=== PATIENT | male | born 1980 | race Two or more races ===

== ENCOUNTER 2017-09-11 11:28 | Outpatient (CLI) | payer OTHER | END 2017-09-11 12:40 | disposition home or self-care (01) | LOC: TOM 11:28 | DX: N28.1 Cyst of kidney, acquired (principal) ==

== ENCOUNTER 2017-09-26 14:05 | Outpatient (CLI) | payer OTHER | END 2017-09-26 15:00 | disposition home or self-care (01) | LOC: NUCLEAR 14:05 | DX: N28.1 Cyst of kidney, acquired (principal) | CPT/HCPCS: 78708; A9539; J1940 ==

== ENCOUNTER 2018-08-17 21:44 | Emergency (ER) | payer OTHER ==
[~2018-08-17] VITALS: Ht 172.7 cm; Wt 83.9 kg
[2018-08-18] MEDS ORDERED: ULTRACET PO (01:22)
== END 2018-08-18 01:51 | disposition home or self-care (01) ==
LOC: ER 21:44
DX: N13.5 Crossing vessel and stricture of ureter without hydronephrosis (principal); R10.32 Left lower quadrant pain

== ENCOUNTER → 2018-08-20 | Outpatient (CLI) | payer OTHER ==
[~2018-08-20] MED LIST: ULTRACET PO
== END | disposition home or self-care (01) ==
LOC: SONOGRAMA 10:14 → MAMO-SONO 10:45
DX: N13.1 Hydronephrosis with ureteral stricture, not elsewhere classified (principal)

== ENCOUNTER 2018-08-31 07:13 | Outpatient (CLI) | payer OTHER | END 2018-08-31 07:58 | disposition home or self-care (01) | LOC: LAB 07:13 | DX: N13.1 Hydronephrosis with ureteral stricture, not elsewhere classified (principal) ==

== ENCOUNTER 2018-09-08 07:28 | Inpatient (IN) | payer OTHER ==
[~2018-09-08] VITALS: Ht 172.7 cm; Wt 81.6 kg
[2018-09-12] MEDS ORDERED: PANTOPRAZOLE SO40 MG PO (09:36)
[2018-09-12] MEDS ORDERED: INTEGRA CAPSUL1 EACH PO (09:37)
== END 2018-09-12 09:57 | disposition home or self-care (01) | DRG 384 ==
LOC: ER 07:28 → MEDJ 19:35
PROVIDERS: ADMIT Internal Medicine
PROC: 0DB78ZX Excision of Stomach, Pylorus, Via Natural or Artificial Opening Endoscopic, Diagnostic (ICD-10-PCS; principal; 2018-09-11)
DX: K25.3 Acute gastric ulcer without hemorrhage or perforation (principal); D62 Acute posthemorrhagic anemia; N13.5 Crossing vessel and stricture of ureter without hydronephrosis; K92.0 Hematemesis; R10.32 Left lower quadrant pain; D72.828 Other elevated white blood cell count

== ENCOUNTER 2018-10-12 07:56 | Outpatient (CLI) | payer OTHER ==
[~2018-10-12 07:56] MED LIST changes: +INTEGRA CAPSUL1 EACH PO; +PANTOPRAZOLE SO40 MG PO
== END 2018-10-12 08:31 | disposition home or self-care (01) ==
LOC: RAD 07:56
DX: N18.9 Chronic kidney disease, unspecified (principal); N20.0 Calculus of kidney

== ENCOUNTER 2019-08-11 11:46 | Emergency (ER) | payer OTHER ==
[~2019-08-11] VITALS: Ht 172.7 cm; Wt 83.9 kg
[2019-08-11] MEDS ORDERED: AIRBORNE EFFER1 EACH PO (17:11)
[2019-08-11] MEDS ORDERED: ZITHROMAX500 MG PO (17:11)
== END 2019-08-11 17:24 | disposition home or self-care (01) ==
LOC: ER 11:46
DX: B34.9 Viral infection, unspecified (principal); B96.0 Mycoplasma pneumoniae [M. pneumoniae] as the cause of diseases classified elsewhere; G44.209 Tension-type headache, unspecified, not intractable; N39.0 Urinary tract infection, site not specified; B96.1 Klebsiella pneumoniae [K. pneumoniae] as the cause of diseases classified elsewhere; R31.29 Other microscopic hematuria; Z03.818 Encounter for observation for suspected exposure to other biological agents ruled out

== ENCOUNTER → 2019-08-29 06:26 | Outpatient (CLI) | payer OTHER ==
[~2019-08-29 06:26] MED LIST changes: +AIRBORNE EFFER1 EACH PO; +ZITHROMAX500 MG PO
== END | disposition home or self-care (01) ==
LOC: LAB 06:26
PROVIDERS: ATTEND Urology
DX: N30.00 Acute cystitis without hematuria (principal)

== ENCOUNTER 2020-01-20 15:25 | Emergency (ER) | payer OTHER ==
[~2020-01-20] VITALS: Ht 172.7 cm; Wt 83.9 kg
[2020-01-20] MEDS ORDERED: IVERMECTIN3 MG PO (19:49)
[2020-01-20] MEDS ORDERED: MEDROLPACK PO (19:49)
[2020-01-20] MEDS ORDERED: DOLOGEN CAPLET1 EACH PO (19:49)
[2020-01-20] MEDS ORDERED: TUSNEL LIQUID178 ML PO (19:49)
[2020-01-20] MEDS ORDERED: ZITHROMAX500 MG PO (19:49)
== END 2020-01-20 20:02 | disposition home or self-care (01) ==
LOC: ER 15:25
DX: U07.1 COVID-19 (principal); J12.89 Other viral pneumonia; B96.0 Mycoplasma pneumoniae [M. pneumoniae] as the cause of diseases classified elsewhere; B34.9 Viral infection, unspecified

== ENCOUNTER 2020-10-02 10:54 | Outpatient (CLI) | payer OTHER ==
[~2020-10-02 10:54] MED LIST changes: +DOLOGEN CAPLET1 EACH PO; +IVERMECTIN3 MG PO; +MEDROLPACK PO; +TUSNEL LIQUID178 ML PO
== END 2020-10-02 14:46 | disposition home or self-care (01) ==
LOC: TOM 10:54
PROVIDERS: ATTEND Urology
DX: N20.0 Calculus of kidney (principal); N28.89 Other specified disorders of kidney and ureter

== ENCOUNTER → 2020-11-17 09:50 | Outpatient (CLI) | payer OTHER | END | disposition home or self-care (01) | LOC: LAB 09:50 | PROVIDERS: ATTEND Urology | DX: N20.0 Calculus of kidney (principal) ==

== ENCOUNTER → 2020-11-19 10:13 | Outpatient (CLI) | payer OTHER | END | disposition home or self-care (01) | LOC: LAB 10:13 | PROVIDERS: ATTEND Urology | DX: N20.0 Calculus of kidney (principal) ==

== ENCOUNTER → 2020-11-21 | Outpatient (CLI) | payer OTHER | END | disposition home or self-care (01) | LOC: LAB 12:43 | PROVIDERS: ATTEND Urology | DX: N20.0 Calculus of kidney (principal) ==

== ENCOUNTER 2020-12-14 10:40 | Outpatient (CLI) | payer OTHER | END 2020-12-14 15:00 | disposition home or self-care (01) | LOC: LAB 10:40 | PROVIDERS: ATTEND Urology | DX: N20.0 Calculus of kidney (principal) ==

== ENCOUNTER 2021-10-21 10:03 | Outpatient (CLI) | payer OTHER | END 2021-10-21 10:58 | disposition home or self-care (01) | LOC: LAB 10:03 | DX: D50.0 Iron deficiency anemia secondary to blood loss (chronic) (principal); E03.9 Hypothyroidism, unspecified; D64.9 Anemia, unspecified; N39.0 Urinary tract infection, site not specified; D29.1 Benign neoplasm of prostate ==

== ENCOUNTER 2021-10-21 10:40 | Outpatient (CLI) | payer OTHER | END 2021-10-21 10:51 | disposition home or self-care (01) | LOC: SONOGRAMA 10:40 | PROVIDERS: ATTEND Obstetrics & Gynecology | DX: N23 Unspecified renal colic (principal) ==

== ENCOUNTER → 2022-02-26 08:58 | Outpatient (CLI) | payer OTHER | END | disposition home or self-care (01) | LOC: LAB 08:58 | PROVIDERS: ATTEND Urology | DX: R97.21 Rising PSA following treatment for malignant neoplasm of prostate (principal) ==

== ENCOUNTER 2022-03-01 09:20 | Outpatient (CLI) | payer OTHER | END 2022-03-01 09:29 | disposition home or self-care (01) | LOC: RAD 09:20 | PROVIDERS: ATTEND Urology | DX: N20.0 Calculus of kidney (principal) ==

== ENCOUNTER 2022-04-05 13:15 | Emergency (ER) | payer OTHER ==
[~2022-04-05] VITALS: Ht 172.7 cm; Wt 88.9 kg
[2022-04-05] MEDS ORDERED: ZYRTEC10 M3 PO (19:09)
[2022-04-05] MEDS ORDERED: FLONASE ALLERG9.9 ML NASAL (19:09)
== END 2022-04-05 19:12 | disposition home or self-care (01) ==
LOC: ER 13:15
DX: R51.9 Headache, unspecified (principal); N18.9 Chronic kidney disease, unspecified

== ENCOUNTER 2022-10-15 10:14 | Emergency (ER) | payer OTHER ==
[~2022-10-15] VITALS: Ht 172.7 cm; Wt 90.7 kg
[~2022-10-15 10:14] MED LIST changes: +FLONASE ALLERG9.9 ML NASAL; +ZYRTEC10 M3 PO
== END 2022-10-15 17:27 | disposition home or self-care (01) ==
LOC: ER 10:14
PROVIDERS: General Practice
DX: R50.9 Fever, unspecified (principal); Z87.442 Personal history of urinary calculi; N41.9 Inflammatory disease of prostate, unspecified; Z90.5 Acquired absence of kidney; Z20.822 Contact with and (suspected) exposure to COVID-19

== ENCOUNTER 2024-11-07 07:04 | Outpatient (CLI) | payer OTHER ==
[2024-11-07 08:19] LABS: BASO % 0.5 % (0.1-1.2); EOS # 0.11 (0.04-0.54); EOS % 1.7 % (0.7-7.0); LYMPH # 3.05 (1.18-3.74); LYMPH % 47.7 % (19.3-53.1); MEAN PLATELET VOLUME 10.20 fl (9.4-12.4); MONO # 0.64 (0.24-0.82); MONO % 10.0 % (4.7-12.5); NEUT # 2.56 (1.56-6.13); NEUT % 39.9 % (34.0-71.1); RED CELL DISTRIBUTION WIDTH 12.9 % (11.6-14.4)
[2024-11-07 08:24] LABS: URINE APPEARANCE Clear; URINE BILIRRUBIN Negative (NEGATIVE); URINE BLOOD Negative; URINE COLOR Yellow; URINE GLUCOSE Negative (NEGATIVE); URINE KETONE Negative (NEGATIVE); URINE LEUKOCYTE Negative; URINE NITRATE Negative; URINE PROTEIN Negative (NEGATIVE); URINE UROBILINOGEN 0.2 E.U./dl
[2024-11-07 08:28] LABS: URINE RBC 2.0 uL (0.0-20.8); URINE WBC 2.7 uL (0.0-23.2)
[2024-11-07 08:29] LABS: URINE BACTERIA 1.1 uL (0.0-1933); URINE CAST 0.00 uL (0.0-1.40); URINE EPITHELIAL CELLS 0.9 uL (0.0-38.8)
[2024-11-07 09:15] LABS: ALT/SGPT 48.0 U/L (12-78); AST/SGOT 30.0 U/L (15-37); BILIRUBIN TOTAL 0.33 mg/dL (0.3-1.2); BUN CREA RATIO 15.0 (7.0-25.0); CHOL HDL RATIO 3.9 (0-5.0); CREATININE SERUM 1.14 mg/dL (0.70-1.30); GFR 69.46; GLOBULINA 3.6 G/DL (2.4-3.5); GLUCOSE FASTING 90.0 mg/dL (65-100); HDL 50.0 mg/dl (40-60); LDL 123.0 mg/dl (0-130); OSMOLALITY SERUM 282.0 MOSM/KG (275-295); PROSTATIC SPECIFIC ANTIGEN 1.76 NG/ML (0.010-4.00); TSH 1.21 uIU/mL (0.358-3.74); VLDL 20.0 (0-39)
== END 2024-11-07 07:22 | disposition home or self-care (01) ==
LOC: LAB 07:04
PROVIDERS: ATTEND Obstetrics & Gynecology
DX: R73.9 Hyperglycemia, unspecified (principal); R42 Dizziness and giddiness; R30.0 Dysuria; Z12.11 Encounter for screening for malignant neoplasm of colon; Z12.5 Encounter for screening for malignant neoplasm of prostate; E78.2 Mixed hyperlipidemia

== ENCOUNTER 2024-11-07 07:40 | Outpatient (CLI) | payer OTHER | END 2024-11-07 07:56 | disposition home or self-care (01) | LOC: SONOGRAMA 07:40 | DX: Z90.5 Acquired absence of kidney (principal) ==